=== PATIENT | female | born 1955 | race American Indian/Alaskan Native ===

== ENCOUNTER 2016-06-11 20:26 | Emergency (ER) | payer MEDICAID, OTHER ==
[2016-06-11 20:36] VITALS: BP 139/87
[2016-06-11] MEDS ORDERED: methylPREDNISolone Sodium Succinate 125 MG/2 ML SDV IM ONE (21:25)
[2016-06-11] MEDS ORDERED: hydrOXYzine HCl 25 MG Tab PO ONE (21:25)
--- NOTE | 2016-06-11 21:30 | EDM.PDOC ---
ED HPI Skin/Rash - General Chief Complaint: Skin Complaint Stated Complaint: RASH ON FACE, DIAG W/BRAIN CANCER Time Seen by Provider: 06/11/16 21:26 Source: Reports: Patient History Limitations: Reports: No limitations - History of Present Illness INITIAL COMMENTS - FREE TEXT/NARRATIVE: been trying to deal with itchy rash on face since sunday. been taking benadryl without relief. 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 Brain biopsy in 2004 Oncologic (Cancer) History: Reports: Brain - Past Surgical History Female Surgical History: Reports: section, D&C Social & Family History - Family History Family Medical History: Noncontributory - Tobacco Use Smoking Status *Q: Current Every Day Smoker Years of Tobacco use: 25 Packs/Tins Daily: 1 Used Tobacco, but Quit: No Second Hand Smoke Exposure: No - Caffeine Use Caffeine Use: Reports: Coffee - Recreational Drug Use Recreational Drug Use: No ED ROS GENERAL - Review of Systems Review Of Systems: ROS reveals no pertinent complaints other than HPI. ED EXAM, SKIN/RASH Exam: See Below Exam Limited By: No limitations General Appearance: alert, WD/WN, no apparent distress, anxious Ears: hearing grossly normal Throat/Mouth: Normal voice, No airway compromise Head: atraumatic Neck: non-tender, full range of motion Respiratory/Chest: no respiratory distress Cardiovascular: regular rate, rhythm GI/Abdominal: soft, non tender Neurological: alert, oriented, normal cognition, normal gait, no motor/sensory deficits Psychiatric: anxious Skin: Rash Location, Skin: face Characteristics: maculopapular Lymphatic: no adenopathy Course - Vital Signs Last Recorded V/S: Last Vital Signs Temp 36.8 C 06/11/16 20:31 Pulse 54 L 06/11/16 20:31 Resp 18 06/11/16 20:31 BP 139/87 06/11/16 20:31 Pulse Ox 100 06/11/16 20:31 - Orders/Labs/Meds Orders: Active Orders 24 hr Category Date Time Status hydrOXYzine HCl [Atarax] Med 06/11/16 21:25 Once 25 mg PO ONETIME ONE methylPREDNISolone Sod Succ [Solu-MEDROL] Med 06/11/16 21:25 Once 125 mg IM ONETIME ONE Departure - Departure Time of Disposition: 21:27 Disposition: Home, Self-Care 01 Condition: good Clinical Impression: Rash and nonspecific skin eruption Instructions: Rash Forms: ED Department Discharge Additional Instructions: 1) don't scratch too much 2) don't take benadryl take atarax instead. 3) follow up at clinic rx given: medrol dospak atarax 25mg tid prn itch x 12 - My Orders Last 24 Hours: My Active Orders 06/11/16 21:25 hydrOXYzine HCl [Atarax] 25 mg PO ONETIME ONE methylPREDNISolone Sod Succ [Solu-MEDROL] 125 mg IM ONETIME ONE - Assessment/Plan Last 24 Hours: My Active Orders 06/11/16 21:25 hydrOXYzine HCl [Atarax] 25 mg PO ONETIME ONE methylPREDNISolone Sod Succ [Solu-MEDROL] 125 mg IM ONETIME ONE
== END 2016-06-11 21:40 | disposition home or self-care (01) ==
LOC: DL.ED 20:26
DX: R21 Rash and other nonspecific skin eruption (principal); F17.210 Nicotine dependence, cigarettes, uncomplicated; Z88.0 Allergy status to penicillin; Z88.5 Allergy status to narcotic agent
CPT/HCPCS: 96372; 99282; A9270; J2930